=== PATIENT | male | born 1950 | race Caucasian/White ===

== ENCOUNTER 2017-06-30 13:42 | Emergency (ER) | payer OTHER ==
[2017-06-30 14:02] LABS: EOSINOPHIL (%) 1.3 % (0-5); EOSINOPHIL COUNT 0.1 K/uL (0-0.3); HEMATOCRIT 40.2 % (38.0-50.0); IMMATURE GRANULOCYTE (%) 0.3 % (0.0-0.7); INSTRUMENT ABS NEUTROPHIL CT 5.6 K/uL; LYMPHOCYTE COUNT 1.6 K/uL (1.0-2.8); MCH 32.4 PG (29.0-34.0); MCHC 34.8 G/DL (30.0-36.0); MCV 93.1 FL (86-99); MEAN PLAT.VOLUME 10.1 uM^3 (9.0-12.4); MONOCYTE (%) 7.4 % (3-12); MONOCYTE COUNT 0.6 K/uL (0-0.8); NEUTROPHIL (%) 70.8 % (45-76); NEUTROPHIL COUNT 5.6 K/uL (1.8-6.4); PLATELET COUNT 190 K/uL (156-360); RBC DIS.WIDTH-CV 12.4 % (11.8-14.6); RBC DIS.WIDTH-SD 43.1 % (39-53); RED BLOOD COUNT 4.32 M/uL (4.00-5.50); WHITE BLOOD COUNT 7.9 K/uL (4.1-10.2)
[2017-06-30 14:12] LABS: AMYLASE 58 IU/L (1-118); CHLORIDE 105 mEq/L (99-109); POTASSIUM 3.9 mEq/L (3.7-5.4); SODIUM 137 mEq/L (136-147)
[2017-06-30 14:14] LABS: GLUCOSE 122 mg/dL (70-99)
[2017-06-30 14:15] LABS: ANION GAP 12 MEQ/L (2-14)
[2017-06-30 14:17] LABS: SERUM ETHYL ALCOHOL < 10 mg/dL
[2017-06-30 14:18] LABS: GFR ESTIMATE (CALCULATED) > 59 mL/min/
[2017-06-30 14:19] LABS: UREA NITROGEN (BUN) 22 mg/dL (9-23)
[2017-06-30 14:21] LABS: LIPASE 13 U/L (1.0-51.0)
[2017-06-30] MEDS ORDERED: TYLENOL WITH C1 EACH PO (15:57)
== END 2017-06-30 16:43 | disposition home or self-care (01) ==
LOC: TRA 13:42
PROVIDERS: Emergency Medicine
DX: S06.9X9A Unspecified intracranial injury with loss of consciousness of unspecified duration, initial encounter (principal); S30.0XXA Contusion of lower back and pelvis, initial encounter; S51.011A Laceration without foreign body of right elbow, initial encounter; S40.011A Contusion of right shoulder, initial encounter; M54.2 Cervicalgia; W17.89XA Other fall from one level to another, initial encounter; F17.200 Nicotine dependence, unspecified, uncomplicated
CPT/HCPCS: 70450; 71010; 72100; 72125; 73030; 73080; 80048; 81003; 82150; 83690; 85025; 86850; 86900; 86901; 99281; 99285; G0480